=== PATIENT | male | born 1970 | race Caucasian/White ===

== ENCOUNTER 2016-11-21 20:45 | Emergency (ER) | payer SELFPAY ==
[~2016-11-21] VITALS: Ht 188 cm; Wt 103.4 kg
[2016-11-21 22:19] VITALS: BP 119/93
== END 2016-11-21 22:46 | disposition home or self-care (01) ==
LOC: EME 20:45
DX: F31.9 Bipolar disorder, unspecified (principal); F17.200 Nicotine dependence, unspecified, uncomplicated
CPT/HCPCS: 90839; 99281; 99284

== ENCOUNTER 2017-04-14 20:20 | Emergency (ER) | payer SELFPAY ==
[~2017-04-14] VITALS: Ht 188 cm; Wt 101.7 kg
[2017-04-14] MEDS ORDERED: MOTRIN600 MG PO (21:44)
[2017-04-14 22:03] VITALS: BP 151/90
== END 2017-04-14 22:05 | disposition home or self-care (01) ==
LOC: EME 20:20
DX: M76.52 Patellar tendinitis, left knee (principal); Z91.013 Allergy to seafood
CPT/HCPCS: 73564; 99281; 99283

== ENCOUNTER 2017-05-08 15:16 | Emergency (ER) | payer SELFPAY ==
[~2017-05-08] VITALS: Ht 188 cm; Wt 101.8 kg
[~2017-05-08 15:16] MED LIST: MOTRIN600 MG PO
[2017-05-08 15:31] VITALS: BP 134/87
[2017-05-08 17:23] LABS: HEMATOCRIT 41.1 % (38.0-50.0); MCHC 34.5 G/DL (30.0-36.0); MCV 89.7 FL (86-99); MEAN PLAT.VOLUME 8.4 uM^3 (9.0-12.4); PLATELET COUNT 298 K/uL (156-360); RBC DIS.WIDTH-CV 12.9 % (11.8-14.6); RBC DIS.WIDTH-SD 42.5 % (39-53); RED BLOOD COUNT 4.58 M/uL (4.00-5.50); WHITE BLOOD COUNT 9.1 K/uL (4.1-10.2)
[2017-05-08 17:31] LABS: CHLORIDE 102 mEq/L (99-109); POTASSIUM 4.3 mEq/L (3.7-5.4); SODIUM 138 mEq/L (136-147)
[2017-05-08 17:33] LABS: GLUCOSE 98 mg/dL (70-99)
[2017-05-08 17:34] LABS: ANION GAP 11 MEQ/L (2-14)
[2017-05-08 17:35] LABS: TOTAL BILIRUBIN 1.5 mg/dL (0.0-1.0)
[2017-05-08 17:36] LABS: SERUM ETHYL ALCOHOL < 10 mg/dL
[2017-05-08 17:37] LABS: ALKALINE PHOSPHATASE 52 IU/L (3-129); GFR ESTIMATE (CALCULATED) 54 mL/min/
[2017-05-08 17:38] LABS: UREA NITROGEN (BUN) 22 mg/dL (9-23)
[2017-05-08 18:01] LABS: ADD MIUA? YES; BILIRUBIN NEGATIVE; BLOOD NEGATIVE; COLOR YELLOW ((YELLOW)); GLUCOSE (STRIP) NEGATIVE; KETONES 5; LEUKOCYTES NEGATIVE; NITRITE NEGATIVE; PROTEIN (STRIP) 100; SPECIFIC GRAVITY 1.028 (1.000-1.030); UROBILINOGEN 0.2 MG/DL (0.2-1.0)
[2017-05-08 18:10] LABS: ADD MEDTOX COMMENT Y; AMPHETAMINE NEGATIVE (500 ng/mL); BARBITURATES NEGATIVE (200 ng/mL); BENZODIAZEPINES NEGATIVE (150 ng/mL); COCAINE PRESUMPTIVE POSITIVE (150 ng/mL); INTERNAL CONTROLS VALID? YES; METHADONE NEGATIVE (200 ng/mL); METHAMPHETAMINE NEGATIVE (500 ng/mL); OPIATES (MORPHINE) NEGATIVE (100 ng/mL); OXYCODONE NEGATIVE (100 ng/mL); PHENCYCLIDINE NEGATIVE (25 ng/mL); PROPOXYPHENE NEGATIVE (300 ng/mL); THC CANNABINOIDS NEGATIVE (50 ng/mL); TRICYCLIC ANTIDEPRESSANTS NEGATIVE (300 ng/mL)
[2017-05-08 18:24] LABS: EPITHELIAL CELLS NONE SEEN /HPF; MUCUS 3+ /LPF; RED BLOOD CELLS 0-5 /HPF (0-5); WHITE BLOOD CELLS 0-5 /HPF (0-5)
[2017-05-08 18:25] LABS: AMORPHOUS URATES CRYSTALS 1+; BACTERIA 1+ /HPF; CASTS PRESENT /LPF; CRYSTALS PRESENT; HYALINE CASTS RARE /LPF; URIC ACID CRYSTALS RARE /HPF
== END 2017-05-08 18:17 | disposition home or self-care (01) ==
LOC: EME 15:16
PROVIDERS: Emergency Medicine
DX: F14.20 Cocaine dependence, uncomplicated (principal)
CPT/HCPCS: 80053; 81003; 84999; 85027; 90839; 99281; 99283; G0480